=== PATIENT | male | born 1995 | race Caucasian/White ===

== ENCOUNTER 2023-08-26 16:18 | Emergency (ER) | payer OTHER ==
[~2023-08-26] VITALS: Ht 182.9 cm; Wt 84.1 kg
[2023-08-26 17:27] VITALS: TEMP 98.2
[2023-08-26 18:57] VITALS: BP 133/76; PULSE 88; RESP 18
[2023-08-26] MEDS ORDERED: IBUP-1493 PO (19:41)
== END 2023-08-26 20:09 | disposition home or self-care (01) ==
LOC: EMS 16:23
DX: S92.352A Displaced fracture of fifth metatarsal bone, left foot, initial encounter for closed fracture (principal); Z98.890 Other specified postprocedural states; X50.1XXA Overexertion from prolonged static or awkward postures, initial encounter; Y93.89 Activity, other specified; Y92.89 Other specified places as the place of occurrence of the external cause; Y99.8 Other external cause status
CPT/HCPCS: 99283